=== PATIENT | female | born 1970 | race Caucasian/White ===

== ENCOUNTER 2019-12-15 06:26 | Day surgery (SDC) | payer OTHER ==
[~2019-12-15 06:26] MED LIST: Lidocaine 1%/Sod Bicarbonate in NS 8.4% 1 ML Syringe IDERM PRN; Sodium Chloride 0.9% 10 ML Syringe FLUSH PRN
[2019-12-15] MEDS ORDERED: Lidocaine 1% with EPINEPHrine 1:100,000 20 ML MDV ONE (06:36)
[2019-12-15] MEDS ORDERED: Sodium Chloride 0.9% 50 ML SDV ONE (06:37)
[2019-12-15] MEDS: Lactated Ringers 1,000 ML IV SCH ×2 (06:55→09:22)
[2019-12-15] MEDS ORDERED: Rocuronium 50 MG/5 ML Vial ONE (07:09)
[2019-12-15] MEDS ORDERED: Midazolam 1 MG/ML 2 ML SDV ONE (07:10)
[2019-12-15] MEDS ORDERED: fentaNYL 250 MCG/5 ML SDV ONE (07:10)
[2019-12-15] MEDS ORDERED: Propofol 200 MG/20 ML SDV ONE (07:10)
[2019-12-15] MEDS ORDERED: Lidocaine 1% 4 ML ONE (07:12)
--- NOTE | 2019-12-15 07:27 | PCM.PREANE ---
Preanesthetic Assessment - Anesthesia/Transfusion/Family Hx Anesthesia History: Prior Anesthesia Without Reaction Family History of Anesthesia Reaction: No Transfusion History: No Prior Transfusion(s) Intubation History: Unknown - Review of Systems General: No Symptoms Pulmonary: No Symptoms Cardiovascular: No Symptoms Gastrointestinal: No Symptoms Neurological: No Symptoms Other: Reports: None - Physical Assessment NPO Status Date: 12/14/19 NPO Status Time: 20:00 Vital Signs: Last Vital Signs Temp 98.1 F 12/15/19 06:35 Pulse 54 L 12/15/19 06:35 Resp 16 12/15/19 06:35 BP 109/73 12/15/19 06:35 Pulse Ox 97 12/15/19 06:35 Height: 1.65 m Weight: 77.564 kg ASA Class: 1 Mental Status: Alert & Oriented x3 Airway Class: Mallampati = 2 Dentition: Reports: Normal Dentition Thyro-Mental Finger Breadths: 3 Mouth Opening Finger Breadths: 3 ROM/Head Extension: Full Lungs: Clear to Auscultation, Normal Respiratory Effort Cardiovascular: Regular Rate, Regular Rhythm - Lab Values: Laboratory Last Values WBC 5.43 K/mm3 (3.98-10.04) 12/15/19 06:51 RBC 4.63 M/mm3 (3.98-5.22) 12/15/19 06:51 Hgb 13.4 gm/dl (11.2-15.7) 12/15/19 06:51 Hct 41.0 % (34.1-44.9) 12/15/19 06:51 MCV 88.6 fl (79.4-94.8) 12/15/19 06:51 MCH 28.9 pg (25.6-32.2) 12/15/19 06:51 MCHC 32.7 g/dl (32.2-35.5) 12/15/19 06:51 RDW Std Deviation 41.3 fL (36.4-46.3) 12/15/19 06:51 Plt Count 253 K/mm3 (182-369) 12/15/19 06:51 MPV 10.9 fl (9.4-12.3) 12/15/19 06:51 Neut % (Auto) 62.8 % (34.0-71.1) 12/15/19 06:51 Lymph % (Auto) 20.8 % (19.3-51.7) 12/15/19 06:51 [place] % (Auto) 12.0 % (4.7-12.5) 12/15/19 06:51 Eos % (Auto) 3.1 (0.7-5.8) 12/15/19 06:51 Baso % (Auto) 0.9 % (0.1-1.2) 12/15/19 06:51 Neut # (Auto) 3.41 K/mm3 (1.56-6.13) 12/15/19 06:51 Lymph # (Auto) 1.13 K/mm3 (1.18-3.74) L 12/15/19 06:51 [place] # (Auto) 0.65 K/mm3 (0.24-0.36) H 12/15/19 06:51 Eos # (Auto) 0.17 K/mm3 (0.04-0.36) 12/15/19 06:51 Baso # (Auto) 0.05 K/mm3 (0.01-0.08) 12/15/19 06:51 - Allergies Allergies/Adverse Reactions: Allergies Allergy/AdvReac Type Severity Reaction Status Date / Time No Known Allergies Allergy Verified 12/14/19 17:07 - Acknowledgements Anesthesia Type Planned: General Anesthesia Pt an Appropriate Candidate for the Planned Anesthesia: Yes Alternatives and Risks of Anesthesia Discussed w Pt/Guardian: Yes Pt/Guardian Understands and Agrees with Anesthesia Plan: Yes PreAnesthesia Questionnaire HEENT History: Reports: Impaired Vision Gastrointestinal History: Reports: Other (See Below) Other Gastrointestinal History: STOMACH ULCER Genitourinary History: Reports: Renal Calculus, Other (See Below) Other Genitourinary History: HEIDE III [employer] History: Reports: , Other (See Below) Other OB/BYN History: , MENORRHAGIA, DYSMENORRHEA - Past Surgical History Head Surgeries/Procedures: Reports: None HEENT Surgical History: Reports: None Cardiovascular Surgical History: Reports: None Respiratory Surgical History: Reports: None GI Surgical History: Reports: Cholecystectomy Female Surgical History: Reports: LEEP, Lithotripsy/ESWL Male Surgical History: Reports: None Endocrine Surgical History: Reports: None Neurological Surgical History: Reports: None Musculoskeletal Surgical History: Reports: None Oncologic Surgical History: Reports: None Dermatological Surgical History: Reports: None - SUBSTANCE USE Smoking Status *Q: Former Smoker Recreational Drug Use History: No - HOME MEDS Home Medications: Home Meds Cholecalciferol (Vitamin D3) [Vitamin D3] 1,000 unit PO DAILY 12/14/19 [History] Evening Elizabeth Oil 500 mg PO BEDTIME 12/14/19 [History] FLUoxetine HCl [Prozac] 10 mg PO DAILY 12/14/19 [History] lamoTRIgine [Lamotrigine] 75 mg PO DAILY 12/14/19 [History] - CURRENT (IN HOUSE) MEDS Current Meds: Current Medications Lactated Ringer's (Ringers, Lactated) 1,000 mls @ 125 mls/hr IV ASDIRECTED SHAUN Stop: 12/15/19 23:00 Last Admin: 12/15/19 06:55 Dose: 125 mls/hr Lidocaine/Sodium Bicarbonate (Buffered Lidocaine 1% In Ns 8.4%) 0.25 ml IDERM ONETIME PRN PRN Reason: Prior to IV Start Stop: 12/15/19 18:00 Last Admin: 12/15/19 06:54 Dose: 0.25 ml Sodium Chloride (Saline Flush) 10 ml FLUSH ASDIRECTED PRN PRN Reason: Keep Vein Open Stop: 12/15/19 18:00 Discontinued Medications Fentanyl (Sublimaze) Confirm Administered Dose 250 mcg .ROUTE .STK-MED ONE Stop: 12/15/19 07:11 Lidocaine HCl (Xylocaine-Mpf 1%) Confirm Administered Dose 4 mls @ as directed .ROUTE .STK-MED ONE Stop: 12/15/19 07:13 Lidocaine/Epinephrine (Xylocaine 1% With Epinephrine 1:100,000) Confirm Administered Dose 20 ml .ROUTE .STK-MED ONE Stop: 12/15/19 06:37 Midazolam HCl (Versed 1 Mg/Ml) Confirm Administered Dose 4 mg .ROUTE .STK-MED ONE Stop: 12/15/19 07:11 Propofol (Diprivan 20 Ml) Confirm Administered Dose 200 mg .ROUTE .STK-MED ONE Stop: 12/15/19 07:11 Rocuronium [place] (Zemuron) Confirm Administered Dose 50 mg .ROUTE .STK-MED ONE Stop: 12/15/19 07:10 Sodium Chloride (Normal Saline) Confirm Administered Dose 50 ml .ROUTE .STK-MED ONE Stop: 12/15/19 06:38
[2019-12-15] MEDS ORDERED: Metoclopramide 10 MG/2 ML SDV ONE (07:32)
[2019-12-15] MEDS ORDERED: Succinylcholine/Normal Saline 100 MG/5 ML Syringe ONE (07:38)
[2019-12-15] MEDS ORDERED: ceFAZolin 1 GM Vial ONE (07:53)
[2019-12-15] MEDS ORDERED: Lactated Ringers 1,000 ML ONE (08:14)
[2019-12-15] MEDS ORDERED: HYDROmorphone 0.5 MG/0.5 ML Syringe IVPUSH PRN (08:20)
[2019-12-15] MEDS ORDERED: fentaNYL 100 MCG/2 ML SDV IVPUSH PRN (08:20)
[2019-12-15] MEDS ORDERED: Ondansetron 4 MG/2 ML SDV ONE (08:28)
[2019-12-15] MEDS ORDERED: Ketorolac 30 MG/ML SDV ONE (08:37)
[2019-12-15] MEDS ORDERED: Ondansetron 4 MG/2 ML SDV IVPUSH PRN (08:59)
--- NOTE | 2019-12-15 09:07 | PCM.OPNOTE ---
- General Post-Op/Procedure Note Date of Surgery/Procedure: 12/15/19 Operative Procedure(s): Total vaginal hysterectomy with bilateral salpingectomy and left ovarian cystectomy Findings: Uterus is upper limits normal size. Ovaries appeared functional. Hemorrhagic cyst noted on left ovary. Pre Op Diagnosis: 1. Abnormal uterine bleeding encompassing menorrhagia. 2. Dysmenorrhea Post-Op Diagnosis: Same Anesthesia Technique: General ET Tube Other Anesthesia Type: Lidocaine quarter percent with [id number] mL total local Primary Surgeon: Song De La Fuente Secondary Surgeon: Case Fox Anesthesia Provider: Maik Samuel Reason Grated Cheese Maker Was Necessary: Retraction, assistance, patient safety, quality of care. Pathology: Uterus with cervix, bilateral fallopian tubes and left ovarian cyst in one specimen container Fluid Replacement, Intraop: 1,900 Complications: None Condition: Good Free Text/Narrative:: Duration: 38 minutes Procedure: The patient was placed in supine position on the operating table. General endotracheal anesthesia was accomplished. After positioning, and adequate prep and drape, the procedure was then performed. Sterile speculum was placed in the vagina and cervix was visualized. Cervix was injected with lidocaine quarter percent with epinephrine-20 mL used. A full circumference incision was made in the cervical epithelium. The bladder was pushed well back off cervix. Posterior cul-de-sac was then entered sharply without problems. Left uterosacral was crossclamped with a Enseal vessel closure system. The left uterosacral and then the right uterosacral ligament pedicles were developed using the Enseal system. The anterior cul-de-sac was then entered without problems and the uterine vasculature, cardinal ligament and broad ligament then developed using Enseal vessel closure system. The uterus was inverted at this time and upper broad ligament fallopian tube pedicles were crossclamped with Felix clamps. Specimen was totally removed. Both these pedicles were then secured with a Felix stitch of #1 Vicryl. Left and right fallopian tube was normal in appearance.. Using Enseal vessel closure system each of the tubes was then removed and sent with the specimen. The patient was found to be hemostatically intact at this time. Patient had a left ovarian cyst which appeared hemorrhagic in nature. This was managed with the Enseal vessel closure system with cautery. The cyst was sent with this specimen. Posterior Vaginal cuff was sutured for hemostatic reasons with a running locked suture of 0 Monocryl from the 2 o'clock position to the 10 o' clock position posteriorly. Vaginal cuff was then closed from right to left side with a running locked suture of 0 Monocryl. Patient was returned to supine position and awakened from general endotracheal anesthesia. She tolerated the procedure and left the operating room in satisfactory condition.
--- NOTE | 2019-12-15 09:14 | PCM.POSTAN ---
POST ANESTHESIA ASSESSMENT - MENTAL STATUS Mental Status: Somnolent - VITAL SIGNS Vital Signs: Last Vital Signs Temp 98.2 F 12/15/19 09:00 Pulse 94 12/15/19 09:00 Resp 17 12/15/19 09:00 BP 115/70 12/15/19 09:00 Pulse Ox 100 12/15/19 09:00 - RESPIRATORY Respiratory Status: Respiratory Rate WNL, Airway Patent, O2 Saturation Stable, Supplemental Oxygen - CARDIOVASCULAR CV Status: Pulse Rate WNL, Blood Pressure Stable - GASTROINTESTINAL GI Status: No Symptoms - PAIN Pain Score: 0 - POST OP HYDRATION Hydration Status: Adequate & Stable
[2019-12-15] MEDS ORDERED: traMADol 50 MG Tab PO PRN (10:07)
--- NOTE | 2019-12-15 12:27 | PCM48HPAN ---
Post Anesthesia Note - EVALUATION WITHIN 48HRS OF ANESTHETIC Vital Signs in Normal Range: Yes Patient Participated in Evaluation: Yes Respiratory Function Stable: Yes Airway Patent: Yes Cardiovascular Function Stable: Yes Hydration Status Stable: Yes Pain Control Satisfactory: Yes Nausea and Vomiting Control Satisfactory: Yes Mental Status Recovered: Yes Vital Signs: Last Vital Signs Temp 98.4 F 12/15/19 11:00 Pulse 64 12/15/19 11:00 Resp 16 12/15/19 11:00 BP 100/59 L 12/15/19 11:00 Pulse Ox 94 L 12/15/19 11:00
[2019-12-15] MEDS ORDERED: Ketorolac 30 MG/ML SDV IVPUSH SCH (14:30)
[2019-12-15] MEDS ORDERED: Ibuprofen 600 MG Tab PO PRN (20:30)
== END 2019-12-15 11:51 | disposition home or self-care (01) ==
LOC: JD.SDS 06:26
PROVIDERS: ATTEND Obstetrics & Gynecology
DX: N87.9 Dysplasia of cervix uteri, unspecified (principal); N72 Inflammatory disease of cervix uteri; N84.0 Polyp of corpus uteri; N73.6 Female pelvic peritoneal adhesions (postinfective); N83.8 Other noninflammatory disorders of ovary, fallopian tube and broad ligament; N83.12 Corpus luteum cyst of left ovary; N94.89 Other specified conditions associated with female genital organs and menstrual cycle; Z87.891 Personal history of nicotine dependence; Z87.42 Personal history of other diseases of the female genital tract
CPT/HCPCS: 36415; 58262; 82565; 85025; 86850; 86900; 86901; A9270; J0330; J0690; J1885; J2001; J2250; J2405; J2704; J2765; J3010; J7120; 00944